=== PATIENT | male | born 1950 | race Caucasian/White ===

== ENCOUNTER 2021-06-15 06:44 | Day surgery (SDC) | payer OTHER ==
[~2021-06-15] VITALS: Ht 172.7 cm; Wt 81.6 kg
[~2021-06-15 06:44] MED LIST: 0.9%NACL 1000ML 1,000 ML IV ONE; ALBU8.5H8 IH; CYAN50009 PO; ESCI5TAB16 PO; FLUT9.9S NS; LISI10TA24 PO; MELA1TAB28 PO; MV-M1TAB20 PO; SIMV-43 PO; TIOT18CA3 IH; TRAZ-185 PO
[2021-06-15 07:15] VITALS: BP 154/80
[2021-06-15] MEDS ORDERED: PROPOFOL 10 MG/ML 20ML VIAL IV ONE (08:08)
[2021-06-15 08:35] VITALS: BP 129/57
[2021-06-15 08:40] VITALS: BP 132/72
[2021-06-15 08:45] VITALS: BP 128/65
[2021-06-15 08:50] VITALS: BP 154/78
[2021-06-15] MEDS ORDERED: ALBUTEROL 0.083% 2.5 MG/3 ML INH IH ONE (08:52)
[2021-06-15] MEDS ORDERED: ALBUTEROL 0.083% 2.5 MG/3 ML INH IH SCH (09:00)
[2021-06-15 09:25] VITALS: BP 152/71
== END 2021-06-15 09:25 | disposition home or self-care (01) ==
LOC: ENDO 06:44 → DAH 06:44 → ENDO 09:25
PROVIDERS: ATTEND Internal Medicine
DX: Z12.11 Encounter for screening for malignant neoplasm of colon (principal); R10.12 Left upper quadrant pain; Z20.822 Contact with and (suspected) exposure to COVID-19; K29.50 Unspecified chronic gastritis without bleeding; K63.5 Polyp of colon; K21.00 Gastro-esophageal reflux disease with esophagitis, without bleeding; K22.70 Barrett's esophagus without dysplasia; K31.7 Polyp of stomach and duodenum; K57.30 Diverticulosis of large intestine without perforation or abscess without bleeding; K59.04 Chronic idiopathic constipation; I10 Essential (primary) hypertension; E78.00 Pure hypercholesterolemia, unspecified; J43.9 Emphysema, unspecified; K65.4 Sclerosing mesenteritis; Z86.73 Personal history of transient ischemic attack (TIA), and cerebral infarction without residual deficits; Z79.899 Other long term (current) drug therapy; Z90.89 Acquired absence of other organs; Z90.49 Acquired absence of other specified parts of digestive tract; Z98.890 Other specified postprocedural states; Z86.010 Personal history of colon polyps; Z87.891 Personal history of nicotine dependence; Z72.89 Other problems related to lifestyle; Z88.6 Allergy status to analgesic agent; Z88.8 Allergy status to other drugs, medicaments and biological substances
CPT/HCPCS: 43239; 43251; 45385; 87635; 88305; 88342; 93005; 94640; A4215 ×2; A4221; A4222; A4223; A4606; A4620; A4657; A4663; C9803; J2704; J7030